=== PATIENT | male | born 1955 | race Caucasian/White ===

== ENCOUNTER 2016-11-05 18:22 | Emergency (ER) | payer OTHER ==
[2016-11-05 18:46] VITALS: BP 107/60; PULSE 88; TEMP 98.4; BMI 23.6
--- NOTE | 2016-11-05 18:51 | PDOC ---
History of Present Illness - General History Source: Patient Exam Limitations: No Limitations - History of Present Illness Initial Comments: 11/05/16 18:57 The patient is a 61 year old male, with a significant past medical history of OR s/p stent, HTN and HLD, who presents to the emergency department with possible carbon monoxide exposure that occurred last night. He reports that he stayed in an RV in [facility] with his and forgot to take off the cover for the RV. They state that they turn on the generator for the RV and are afraid that they may have been exposed to carbon monoxide. On presentation the patient notes that he feels fine. The patient denies chest pain, shortness of breath, headache, dizziness, fever, chills, nausea, vomit Allergies: None Past surgical history: Cardiac stent, cholecystectomy, appendectomy Social history: Cigarette use (20 daily). Alcohol use. No drug use reported <David Waldron - Last Filed: 11/05/16 18:57> <Star Saldana - Last Filed: 11/06/16 11:19> - General Chief Complaint: Carbon Monoxide Exposure Stated Complaint: CARBON MONOXIDE EXPOSURE Time Seen by Provider: 11/05/16 18:51 Past History <David Waldron - Last Filed: 11/05/16 18:57> - Past Medical History Cardiac Disorders: Yes (mi) HTN: Yes Hypercholesterolemia: Yes - Surgical History Appendectomy: Yes (?) Cardiac Surgery: Yes (stent) Cholecystectomy: Yes (?) - Psycho/Social/Smoking Cessation Hx Suicidal Ideation: No Smoking Status: Yes Smoking History: Current every day smoker Number of Cigarettes Smoked Daily: 20 Information on smoking cessation initiated: Yes 'Breaking Loose' booklet given: 11/05/16 Hx Alcohol Use: Yes Drug/Substance Use Hx: No Substance Use Type: Alcohol <Star Saldana - Last Filed: 11/06/16 11:19> - Past Medical History Allergies/Adverse Reactions: Allergies Allergy/AdvReac Type Severity Reaction Status Date / Time No Known Allergies Allergy Verified 11/05/16 18:22 Home Medications: Ambulatory Orders Aspirin [ASA] 162 mg PO DAILY 05/14/13 Prasugrel Hydrochloride [Effient] 10 mg PO DAILY 05/14/13 Review of Systems - Review of Systems Able to Perform ROS?: Yes Comments:: 11/05/16 18:57 GENERAL/CONSTITUTIONAL: No fever or chills. No weakness. HEAD, EYES, EARS, NOSE AND THROAT: No change in vision. No ear pain or discharge. No sore throat. CARDIOVASCULAR: No chest pain or shortness of breath RESPIRATORY: No cough, wheezing, or hemoptysis. GASTROINTESTINAL: No nausea, vomiting, diarrhea or constipation. GENITOURINARY: No dysuria, frequency, or change in urination. MUSCULOSKELETAL: No joint or muscle swelling or pain. No neck or back pain. SKIN: No rash NEUROLOGIC: No headache, vertigo, loss of consciousness, or change in strength/ sensation. ENDOCRINE: No increased thirst. No abnormal weight change HEMATOLOGIC/LYMPHATIC: No anemia, easy bleeding, or history of blood clots. ALLERGIC/IMMUNOLOGIC: No hives or skin allergy. <David Waldron - Last Filed: 11/05/16 18:57> *Physical Exam - Vital Signs Last Vital Signs Temp Pulse Resp BP Pulse Ox 98.4 F 88 18 107/60 97 11/05/16 18:22 11/05/16 18:22 11/05/16 18:22 11/05/16 18:22 11/05/16 18:22 - Physical Exam Comments: 11/05/16 18:58 GENERAL: Awake, alert, and fully oriented, in no acute distress HEAD: No signs of trauma, normocephalic, atraumatic EYES: PERRLA, EOMI, sclera anicteric, conjunctiva clear ENT: Auricles normal inspection, hearing grossly normal, nares patent, oropharynx clear without exudates. Moist mucosa NECK: Normal ROM, supple, no lymphadenopathy, JVD, or masses LUNGS: No distress, speaks full sentences, clear to auscultation bilaterally HEART: Regular rate and rhythm, normal S1 and S2, no murmurs, rubs or gallops, peripheral pulses normal and equal bilaterally. ABDOMEN: Soft, nontender, normoactive bowel sounds. No guarding, no rebound. No masses EXTREMITIES: Normal inspection, Normal range of motion, no edema. No clubbing or cyanosis. NEUROLOGICAL: Cranial nerves II through XII grossly intact. Normal speech, normal gait, no focal sensorimotor deficits SKIN: Warm, Dry, normal turgor, no rashes or lesions noted. <David Waldron - Last Filed: 11/05/16 18:57> - Vital Signs Last Vital Signs Temp Pulse Resp BP Pulse Ox 98.4 F 88 18 107/60 97 11/05/16 18:22 11/05/16 18:22 11/05/16 18:22 11/05/16 18:22 11/05/16 18:22 <Star Saldana - Last Filed: 11/06/16 11:19> *DC/Admit/Observation/Transfer - Attestations Scribe Attestion: 11/05/16 18:58 Documentation prepared by David Waldron, acting as medical accounting clerk for Star Saldana MD <David Waldron - Last Filed: 11/05/16 18:57> - Discharge Dispostion Admit: No <Star Saldana - Last Filed: 11/06/16 11:19> Diagnosis at time of Disposition: Exposure to carbon monoxide - Discharge Dispostion Disposition: HOME Condition at time of disposition: Good - Patient Instructions Printed Discharge Instructions: Carbon Monoxide Poisoning Additional Instructions: TYLENOL FOR / IF HEAD ACHE RETURN IF WORSENING OR NEW SYMPTOMS
[2016-11-05 19:41] LABS: VENOUS PH 7.38 (7.35-7.45)
[2016-11-05 19:47] LABS: VENOUS BLOOD GAS HCO3 26.3 meq/L (22-26)
--- NOTE | 2016-11-05 19:53 | PDOC ---
*Physical Exam - Vital Signs Last Vital Signs Temp Pulse Resp BP Pulse Ox 98.4 F 88 18 107/60 97 11/05/16 18:22 11/05/16 18:22 11/05/16 18:22 11/05/16 18:22 11/05/16 18:22 - Physical Exam General Appearance: Yes: Nourished, Appropriately Dressed. No: Apparent Distress Respiratory/Chest: positive: Lungs Clear, Normal Breath Sounds. negative: Respiratory Distress ED Treatment Course - ADDITIONAL ORDERS Additional order review: Laboratory Results 11/05/16 11/05/16 19:35 19:35 VBG pH 7.38 POC VBG pCO2 45.5 H POC VBG pO2 32.6 L* Mixed VBG HCO3 26.3 H Carboxyhemoglobin 6.2 H Progress Note - Progress Note Progress Note: CARBOXY HB 6.7 (SMOKER) ASYMPTOMATIC 1 AND 1/2 HOURS OF 100% O2 D/C HOME *DC/Admit/Observation/Transfer Diagnosis at time of Disposition: Exposure to carbon monoxide - Discharge Dispostion Disposition: HOME Condition at time of disposition: Good - Patient Instructions Printed Discharge Instructions: Carbon Monoxide Poisoning Additional Instructions: TYLENOL FOR / IF HEAD ACHE RETURN IF WORSENING OR NEW SYMPTOMS
== END 2016-11-05 20:03 | disposition home or self-care (01) ==
LOC: FER 18:22
DX: Z77.29 Contact with and (suspected) exposure to other hazardous substances (principal); I25.2 Old myocardial infarction; Z95.5 Presence of coronary angioplasty implant and graft; I10 Essential (primary) hypertension; E78.5 Hyperlipidemia, unspecified; F17.210 Nicotine dependence, cigarettes, uncomplicated
CPT/HCPCS: 82375; 82803; 99282-25

== ENCOUNTER 2018-02-20 11:27 | Emergency (ER) | payer OTHER ==
[2018-02-20 11:41] VITALS: BP 114/72; PULSE 85; TEMP 98.6; BMI 23.0
[2018-02-20] MEDS ORDERED: DIPHTH,PERTUSS(ACELL),TET 0.5 ML DISP.SYRIN IM ONE (12:15)
--- NOTE | 2018-02-20 12:15 | PDOC ---
History of Present Illness - General Chief Complaint: Laceration Stated Complaint: LT THUMB LACERATION Time Seen by Provider: 02/20/18 12:03 - History of Present Illness Initial Comments: 02/20/18 12:42 Patient is a 62-year-old male who presents to the emergency department after cutting his left thumb at work. He is a lead business analyst. He states that he was trying to repair when he sustained a 1.5 cm laceration to his left thumb. Does not removed the date of his last tetanus shot. Is able to move the finger. Pt. is R hand dominant Past History - Travel Traveled outside of the country in the last 30 days: No Close contact w/someone who was outside of country & ill: No - Past Medical History Allergies/Adverse Reactions: Allergies Allergy/AdvReac Type Severity Reaction Status Date / Time No Known Allergies Allergy Verified 02/20/18 11:38 Home Medications: Ambulatory Orders Prasugrel Hydrochloride [Effient] 10 mg PO DAILY 05/14/13 Aspirin [ASA -] 81 mg PO DAILY 02/20/18 Atorvastatin Ca [Lipitor] 10 mg PO HS 02/20/18 Lisinopril [Zestril] 2.5 mg PO DAILY 02/20/18 Cardiac Disorders: Yes (mi) COPD: No HTN: Yes Hypercholesterolemia: Yes - Surgical History Appendectomy: Yes Cardiac Surgery: Yes (stent) Cholecystectomy: Yes - Suicide/Smoking/Psychosocial Hx Smoking Status: Yes Smoking History: Current every day smoker Number of Cigarettes Smoked Daily: 26 Information on smoking cessation initiated: Yes 'Breaking Loose' booklet given: 02/20/18 Hx Alcohol Use: Yes Drug/Substance Use Hx: No Substance Use Type: None Review of Systems - Review of Systems Able to Perform ROS?: Yes Comments:: 02/20/18 12:42 CONSTITUTIONAL: Absent: fever, chills, diaphoresis, generalized weakness, malaise, loss of appetite MUSCULOSKELETAL: Absent: myalgia, arthralgia, joint swelling SKIN: Present: laceration to L 1st finger Absent: rash, itching, pallor NEUROLOGIC: Absent: focal weakness or paresthesias, dizziness. Is the patient limited Latvian proficient: No *Physical Exam - Vital Signs Last Vital Signs Temp Pulse Resp BP Pulse Ox 98.6 F 85 18 114/72 100 02/20/18 11:38 02/20/18 11:38 02/20/18 11:38 02/20/18 11:38 02/20/18 11:38 - Physical Exam Comments: 02/20/18 12:43 GENERAL: The patient is awake, alert, and fully oriented, in no acute distress. HEAD: Normal with no signs of trauma. EYES: Pupils equal, round and reactive to light, extraocular movements intact, sclera anicteric, conjunctiva clear. EXTREMITIES: Normal range of motion, no edema. Able to flex and extend L thumb NEUROLOGICAL: Normal speech, normal gait. PSYCH: Normal mood, normal affect. SKIN: 1.5cm to the L lateral thumb linear, clean with no fb present Warm, Dry, normal turgor, no rashes or lesions noted. Procedures - Laceration/Wound Repair Left Lateral 1st digit Wound Length: to 2.5 cm Wound Explored: clean, no foreign body present Wound's Depth, Shape: superficial, linear Irrigated w/ Saline: Yes Betadine Prep: Yes Anesthesia: 1% Lidocaine Amount of Anesthetic (ccs): 2 (digital block) Wound Repaired With: Sutures, Dermabond Suture Size/Type: 5:0 Number of Sutures: 2 (simple interrupted) Medical Decision Making - Medical Decision Making 02/20/18 12:44 Patient is a 62-year-old male who presents emergency Department with a laceration to his left thumb. Wound was cleaned and repaired with sutures and Dermabond. See procedure note. Tetanus updated today. Patient to return in 7-10 days for suture removal. Return precautions given. Patient stands all discharge instructions and all questions were answered. *DC/Admit/Observation/Transfer Diagnosis at time of Disposition: Laceration of thumb Qualifiers: Encounter type: initial encounter Damage to nail status: without damage Foreign body presence: without foreign body Laterality: left Qualified Code(s): S61.012A - Laceration without foreign body of left thumb without damage to nail , initial encounter - Discharge Dispostion Disposition: HOME Condition at time of disposition: Good Decision to Admit order: No - Referrals - Patient Instructions Printed Discharge Instructions: DI for Laceration Repair Additional Instructions: You had your cut fixed today with stitches. Please return in 7 days to have your stitches removed. Your tetanus shot was updated today. Avoid soaking the hand. Keep it dry when showering. Please keep the area clean and pat dry. You may use bacitracin once a day. You may take Tylenol or Motrin as needed for pain. Follow the manufacturers instructions Return to the emergency department sooner if you have area of redness around the site, purulent drainage, fevers, or have any changes in your symptoms. - Post Discharge Activity Forms/Work/School Notes: Back to Work
== END 2018-02-20 12:49 | disposition home or self-care (01) ==
LOC: JERFT 11:27
PROC: 0HQGXZZ Repair Left Hand Skin, External Approach (ICD-10-PCS; principal; 2018-02-20)
PROC: 3E0234Z Introduction of Serum, Toxoid and Vaccine into Muscle, Percutaneous Approach (ICD-10-PCS; 2018-02-20)
DX: S61.012A Laceration without foreign body of left thumb without damage to nail, initial encounter (principal); W26.9XXA Contact with unspecified sharp object(s), initial encounter; Y93.89 Activity, other specified; Y92.89 Other specified places as the place of occurrence of the external cause; Y99.0 Civilian activity done for income or pay; F17.210 Nicotine dependence, cigarettes, uncomplicated; I10 Essential (primary) hypertension; I25.2 Old myocardial infarction; Z95.5 Presence of coronary angioplasty implant and graft
CPT/HCPCS: 90715; 99282-25

== ENCOUNTER 2018-09-19 11:38 | Emergency (ER) | payer OTHER ==
[2018-09-19 11:48] VITALS: BP 128/78; PULSE 70; TEMP 98.2; BMI 22.8
[2018-09-19] MEDS ORDERED: IBUPROFEN 600 MG TABLET (FP) PO ONE ×2 (12:40→12:42)
--- NOTE | 2018-09-19 12:46 | PDOC ---
History of Present Illness - General Chief Complaint: Injury Stated Complaint: INJURY Time Seen by Provider: 09/19/18 12:32 History Source: Patient Exam Limitations: No Limitations - History of Present Illness Initial Comments: 09/19/18 12:41 HISTORY OF PRESENT ILLNESS: This 63-year-old right hand dominant male who presents emergency Department with left hand pain status post striking it with a sledgehammer while at work on 09/18. Patient reports he struck himself in the hand but did not feel any pain at the time when he woke up today he noticed his left hand was more swollen than his right. No recent travel or sick contacts. PAST MEDICAL HISTORY: [place], HTN, HLD SURGICAL HISTORY: CABG ALLERGIES: No known drug allergies REVIEW OF SYSTEMS General/Constitutional: Denies fever or chills. Denies weakness, weight change. HEENT: Denies change in vision. Denies ear pain or discharge. Denies sore throat. Cardiovascular: Denies chest pain or shortness of breath. Respiratory: Denies cough, wheezing, or hemoptysis. Gastrointestinal: Denies nausea, vomiting, diarrhea or constipation. Denies rectal bleeding. Genitourinary: Denies dysuria, frequency, or change in urination. Musculoskeletal: Swelling to left hand. Denies neck or back pain. Skin and breasts: abrasion to left hand. Neurologic: Denies headache, vertigo, loss of consciousness, or loss of sensation. Psychiatric: Denies depression or anxiety. Endocrine: Denies increased thirst. Denies abnormal weight change. Hematologic/Lymphatic: Denies anemia, easy bleeding, or history of blood clots. Allergic/Immunologic: Denies hives or skin allergy. Denies latex allergy. PHYSICAL EXAM General Appearance: Well-appearing, appropriately dressed. No apparent distress , no intoxication. Vascular Pulses: Radial (R): 2+, Radial (L): 2+ Musculoskeletal/Extremities: FAROM of all extremities, normal capillary refill. Pelvis Stable. No CVA tenderness. Abrasion present to the dorsum of the left hand at the MCP joint of the index finger. Swelling present around the abrasion. No deformity, crepitus or SQ emphysema palpated. Integumentary: Appropriate color, dry, warm. No cyanosis, erythema, jaundice or rash Neurologic: chief design engineer II-XII intact. Fully oriented, alert. Appropriate mood/affect. Motor strength 5/5. No appreciable EOM palsy, facial droop or sensory deficit. Past History - Past Medical History Allergies/Adverse Reactions: Allergies Allergy/AdvReac Type Severity Reaction Status Date / Time No Known Allergies Allergy Verified 02/20/18 11:38 Home Medications: Ambulatory Orders Prasugrel Hydrochloride [Effient] 10 mg PO DAILY 05/14/13 Aspirin [ASA -] 81 mg PO DAILY 02/20/18 Atorvastatin Ca [Lipitor] 10 mg PO HS 02/20/18 Lisinopril [Zestril] 2.5 mg PO DAILY 02/20/18 Cardiac Disorders: Yes (mi) COPD: No HTN: Yes Hypercholesterolemia: Yes - Surgical History Appendectomy: Yes Cardiac Surgery: Yes (stent) Cholecystectomy: Yes - Immunization History Immunization Up to Date: Yes - Suicide/Smoking/Psychosocial Hx Smoking Status: Yes Smoking History: Current every day smoker Number of Cigarettes Smoked Daily: 20 Information on smoking cessation initiated: No 'Breaking Loose' booklet given: 02/20/18 Hx Alcohol Use: No Drug/Substance Use Hx: No Substance Use Type: None *Physical Exam - Vital Signs Last Vital Signs Temp Pulse Resp BP Pulse Ox 98.2 F 70 18 128/78 98 09/19/18 11:45 09/19/18 11:45 09/19/18 11:45 09/19/18 11:45 09/19/18 11:45 Moderate Sedation - Procedure Monitoring Vital Signs: Procedure Monitoring Vital Signs Temperature 98.2 F 09/19/18 11:45 Pulse Rate 70 09/19/18 11:45 Respiratory Rate 18 09/19/18 11:45 Blood Pressure 128/78 09/19/18 11:45 O2 Sat by Pulse Oximetry (%) 98 09/19/18 11:45 ED Treatment Course - RADIOLOGY Radiology Studies Ordered: Category Date Time Status HAND- LEFT [RAD] Stat Radiology 09/19/18 12:40 Ordered Medical Decision Making - Medical Decision Making 09/19/18 12:45 A/P: 63-year-old male with left hand pain status post striking self with a sledgehammer while at work Abrasion present to the MCP of the left index finger along the dorsum of the hand Full active range of motion all joints of the left hand No tenderness to palpation bones of the left hands. No crepitus, deformity or subcutaneous emphysema noted TD- UTD DDx: Fracture versus contusion X-rays, Motrin, reassess 09/19/18 13:25 X-rays read by Dr. Minor: Metallic linear foreign body by distal phalanx left hand second digit. No acute fracture appreciated. Foreign body likely old this patient has no physical findings to this area Steri-Strips placed over wound. I'll discharge the patient home follow-up with his primary doctor as needed. I discussed the physical exam findings, ancillary test results and final diagnoses with the patient. I answered all of the patient's questions. The patient was satisfied with the care received and felt comfortable with the discharge plan and treatment plan. The patient will call their primary care physician within 24 hours to arrange follow-up and will return to the Emergency Department with any new, persistent or worsening symptoms. *DC/Admit/Observation/Transfer Diagnosis at time of Disposition: Contusion Qualifiers: Encounter type: initial encounter Contusion area: hand Laterality: left Qualified Code(s): S60.222A - Contusion of left hand, initial encounter Abrasion hand Qualifiers: Encounter type: initial encounter Laterality: left Qualified Code(s): S60.512A - Abrasion of left hand, initial encounter - Discharge Dispostion Disposition: HOME Condition at time of disposition: Stable Decision to Admit order: No - Referrals - Patient Instructions Additional Instructions: Rest. Take Tylenol or Motrin as needed for pain. Make given the number for orthopedist. If symptoms worsen call the orthopedist for reevaluation. Return to emergency department for inability to move hand, worsening swelling, fevers, chills, red streaks from your hand or any other concerns. Thank you very much for choosing us provider emergent health care needs. - Post Discharge Activity
== END 2018-09-19 13:35 | disposition home or self-care (01) ==
LOC: JERFT 11:38
DX: S60.222A Contusion of left hand, initial encounter (principal); S60.512A Abrasion of left hand, initial encounter; W20.8XXA Other cause of strike by thrown, projected or falling object, initial encounter; Y93.89 Activity, other specified; Y92.89 Other specified places as the place of occurrence of the external cause; Y99.0 Civilian activity done for income or pay; F17.210 Nicotine dependence, cigarettes, uncomplicated; E78.00 Pure hypercholesterolemia, unspecified; I10 Essential (primary) hypertension; I25.2 Old myocardial infarction
CPT/HCPCS: 73130-TC-LT-FY; 99281-25

== ENCOUNTER 2020-11-24 13:18 | Emergency (ER) | payer OTHER ==
[2020-11-24 13:37] VITALS: BP 133/76; PULSE 69; TEMP 99.6; BMI 24.3
[2020-11-24] MEDS ORDERED: IBUPROFEN 600 MG TABLET (FP) PO ONE ×2 (14:14)
== END 2020-11-24 14:31 | disposition home or self-care (01) ==
LOC: FER 13:18
DX: M70.52 Other bursitis of knee, left knee (principal)
CPT/HCPCS: 73562-TC-LT-FY; 99283-25

== ENCOUNTER 2023-03-23 05:27 | Day surgery (SDC) | payer OTHER ==
[2023-03-19 09:53] VITALS: BMI 19.8
[~2023-03-23 05:27] MED LIST: BUPIVACAINE HCL/PF 0.75% 10 ML VIAL NR ONE; LIDOCAINE HCL 1% PRESERVATIVE FREE - 30ML VIAL IJ ONE
[2023-03-23] MEDS ORDERED: BUPIVACAINE HCL/PF 0.75% 10 ML VIAL ONE (07:57)
[2023-03-23 11:58] VITALS: RESP 18
[2023-03-23] MEDS ORDERED: ACETAMINOPHEN 500 MG TABLET (FP) PO PRN (13:12)
[2023-03-23] MEDS ORDERED: LIDOCAINE HCL 1% PRESERVATIVE FREE - 30ML VIAL IJ ONE (14:08)
[2023-03-23] MEDS ORDERED: BUPIVACAINE HCL/PF 0.75% 10 ML VIAL NR ONE (14:08)
[2023-03-23 14:46] VITALS: BP 148/81; PULSE 66; TEMP 98
== END 2023-03-23 14:39 | disposition home or self-care (01) ==
LOC: JASU-SURG 05:27
PROVIDERS: ATTEND Pain Medicine Pain Medicine
PROC: 3E0T33Z Introduction of Anti-inflammatory into Peripheral Nerves and Plexi, Percutaneous Approach (ICD-10-PCS; 2023-03-23)
PROC: 3E0T3BZ Introduction of Anesthetic Agent into Peripheral Nerves and Plexi, Percutaneous Approach (ICD-10-PCS; principal; 2023-03-23 13:30)
DX: M47.816 Spondylosis without myelopathy or radiculopathy, lumbar region (principal)
CPT/HCPCS: 76000-TC-FY

== ENCOUNTER 2024-02-18 21:47 | Emergency (ER) | payer OTHER ==
[2024-02-18 22:05] VITALS: TEMP 98; BMI 20.7
[2024-02-18] MEDS ORDERED: AMOX TR/POT CLAV 875MG/125MG TABLETS (FP) ONE (22:28)
[2024-02-18] MEDS ORDERED: SILVER SULFADIAZINE 1% TOP CREAM 50 GM JAR TP ONE (22:28)
[2024-02-18] MEDS: AMOX TR/POT CLAV 875MG/125MG TABLETS (FP) PO ONE (22:31)
[2024-02-18] MEDS: SILVER SULFADIAZINE 1% TOP CREAM 50 GM JAR TP ONE (22:55)
[2024-02-18 23:25] VITALS: BP 120/66; PULSE 65; RESP 16
== END 2024-02-19 00:29 | disposition short-term general hospital (02) ==
LOC: FER 21:47
DX: T23.241A Burn of second degree of multiple right fingers (nail), including thumb, initial encounter (principal); T23.271A Burn of second degree of right wrist, initial encounter; T22.211A Burn of second degree of right forearm, initial encounter; X03.0XXA Exposure to flames in controlled fire, not in building or structure, initial encounter
CPT/HCPCS: 99285-25